=== PATIENT | male | born 1955 | race Caucasian/White ===

== ENCOUNTER 2017-04-28 17:51 | Outpatient (CLI) | payer OTHER ==
--- NOTE | 2017-04-29 16:43 | XRAY Report ---
EXAM: RIGHT TOE RADIOGRAPHY EXAM DATE: 04/28/2017 06:11 PM. CLINICAL HISTORY: Right toe pain. COMPARISON: None. TECHNIQUE: 3 views. FINDINGS: Bones: Normal. No fracture or bone lesion. Joints: Mild osteoarthritis present. No subluxations. Soft Tissues: Normal. No soft tissue swelling. IMPRESSION: Mild osteoarthritic changes without acute fracture. [facility] Referring Provider Line: [phone] SITE ID: [id number]
== END 2017-04-28 17:52 | disposition home or self-care (01) ==
LOC: DI 17:51
PROVIDERS: ATTEND Internal Medicine
DX: M19.071 Primary osteoarthritis, right ankle and foot (principal)
CPT/HCPCS: 73660

== ENCOUNTER 2019-11-04 10:11 | Emergency (ER) | payer OTHER ==
--- NOTE | 2019-11-04 10:49 | ED Physician Documentation ---
PD HPI LOWER EXT INJURY - Stated complaint Stated Complaint: L ANKLE INJ - Chief complaint Chief Complaint: Ext Problem - History obtained from History obtained from: Patient - History of Present Illness PD HPI LOW EXT INJURY LOCATION: Left, Ankle Type of injury: Twist (inversion of ankle with swelling and has had continued pain and difficulty walking. Using boot orthosis and crutches from prior injury.) Where injury occurred: Home Timing - onset: How many days ago (2) Timing - duration: Days (2) Worsened by: Moving, Palpating Associated symptoms: Weakness, Numbness Similar symptoms before: Has not had sx before Review of Systems Skin: denies: Abrasion (s), Laceration (s) Musculoskeletal: denies: Back pain Neurologic: denies: Focal weakness, Numbness PD PAST MEDICAL HISTORY - Past Medical History Cardiovascular: Hypertension Respiratory: None Endocrine/Autoimmune: None GI: GERD, Hepatitis : None HEENT: None Psych: None Musculoskeletal: None Derm: None - Past Surgical History Past Surgical History: Yes Ortho: Other - Present Medications Home Medications: Ambulatory Orders Medication Instructions Recorded Confirmed lisinopriL [Lisinopril] 15 mg PO QPM 09/06/15 09/07/15 - Allergies Allergies/Adverse Reactions: Allergies Allergy/AdvReac Type Severity Reaction Status Date / Time onion Allergy Unknown Verified 11/04/19 10:25 pepper (genus Capsicum) Allergy Unknown Verified 11/04/19 10:25 [pepper] - Social History Does the pt smoke?: No Smoking Status: Never smoker Does the pt drink ETOH?: No Does the pt have substance abuse?: No - Immunizations Immunizations are current?: Yes PD ED PE NORMAL - Vitals Vital signs reviewed: Yes - General General: Alert and oriented X 3, No acute distress, Well developed/nourished - Derm Derm: Normal color, Warm and dry - Extremities Extremities: Other (left ankle with moderate effusion and has some bruising purple color lateral lower foot. Achilles firm and intact. Medial and lateral ankle tender. No noted laxity with inversion/eversion stress testing but hurts at ATLF area. ) - Neuro Neuro: No motor deficit, No sensory deficit Results - Vitals Vitals: Vital Signs - 24 hr 11/04/19 11/04/19 10:22 11:13 Temperature 36.7 C 36.7 C Heart Rate 106 H 90 Respiratory 14 19 Rate Blood Pressure 140/88 H 128/79 O2 Saturation 97 97 Oxygen O2 Source Room air - Rads (name of study) left ankle Radiology: Prelim report reviewed (no acute fractures), See rad report PD MEDICAL DECISION MAKING - ED course Complexity details: reviewed results, considered differential (enough pain and swelling with some lateral bruising below ankle to suggest some torn ligam ents.), d/w patient Departure - Departure Disposition: 01 Home, Self Care Clinical Impression: Moderate ankle sprain Qualifiers: Encounter type: initial encounter Laterality: left Qualified Code(s): S93.402A - Sprain of unspecified ligament of left ankle, initial encounter Condition: Stable Record reviewed to determine appropriate education?: Yes Instructions: ED Sprain Ankle Follow-Up: Marium Martell PA [Primary Care Provider] - Dheeraj Reynolds MD [Provider Admit Priv/Credential] - Comments: Your x-ray is good without any fractures. Exam would be consistent with some partial tear of your ligaments however so I would continue the walking boot for likely 3 weeks to give time for healing. Initially use of the crutches as needed for comfort and progress weightbearing as tolerated. Elevate ice and rest the ankle often the next couple of days to reduce swelling. Tylenol or ibuprofen or Aleve if needed for pains. Recheck with your primary care or orthopedics if not improving well over the next week or 2 and back to fairly normal within 3 to 4 weeks. Discharge Date/Time: 11/04/19 11:18
--- NOTE | 2019-11-04 10:50 | XRAY Report ---
PROCEDURE: Ankle 3 View LT INDICATIONS: fall TECHNIQUE: 3 views of the ankle were acquired. COMPARISON: None FINDINGS: Bones: No acute fractures or dislocations. Remote appearing irregularity can be seen involving the d istal aspects of the distal medial malleolus and distal lateral malleolus, which may be related to re mote avulsion fractures. Ankle mortise is normally aligned. No suspicious bony lesions. The talar dome demonstrates an unremarkable appearance. Age-appropriate degenerative changes are seen. Soft tissues: Soft tissue swelling is seen, primarily laterally. IMPRESSION: No acute bony abnormality is seen by plain film. Soft tissue swelling is noted, primarily laterally. Please correlate with focal tenderness. If there is point tenderness (or other clinical concern for a fracture not seen on these plain films) then please consider a dedicated CT study or a short term fo llow up plain film series for further evaluation. Reviewed by: Diego Rebolledo MD on 11/04/2019 9:49 AM [facility] Approved by: Diego Rebolledo MD on 11/04/2019 9:49 AM [facility] Station ID: [id number]
[2019-11-04 11:13] VITALS: BP 128/79
== END 2019-11-04 11:18 | disposition home or self-care (01) ==
LOC: ED 10:11
DX: S93.402A Sprain of unspecified ligament of left ankle, initial encounter (principal); X50.1XXA Overexertion from prolonged static or awkward postures, initial encounter; Y93.89 Activity, other specified; Y92.008 Other place in unspecified non-institutional (private) residence as the place of occurrence of the external cause
CPT/HCPCS: 99282; 99283

== ENCOUNTER 2023-04-02 12:57 | Emergency (ER) | payer MEDICARE, OTHER ==
--- NOTE | 2023-04-02 13:32 | ED Physician Documentation ---
PD HPI ABD PAIN - Stated complaint Stated Complaint: ABD PX - Chief complaint Chief Complaint: Abd Pain - History obtained from History obtained from: Patient - Additional information Additional information: Patient is a 67-year-old male presenting for evaluation of epigastric and right upper quadrant pain that started abruptly 30 minutes ago. Patient reports associated nausea but no vomiting. He last had 2 sausage patties around 9:00 this morning. Earlier in the week he had a stomach flu that he describes as nausea, vomiting and diarrhea but his symptoms have stopped since Monday. No associated fevers. No chest pain or shortness of air. Has had a prior hernia surgery but otherwise no other abdominal surgeries. Denies dysuria or flank pain. Nothing makes his symptoms better or worse. Review of Systems Constitutional: denies: Fever Cardiac: denies: Chest pain / pressure Respiratory: denies: Dyspnea GI: reports: Abdominal Pain, Nausea. denies: Vomiting, Diarrhea : denies: Dysuria Musculoskeletal: denies: Back pain PD PAST MEDICAL HISTORY - Past Medical History Past Medical History: Yes Cardiovascular: Hypertension Respiratory: None Endocrine/Autoimmune: None GI: GERD, Hepatitis : None HEENT: None Psych: None Musculoskeletal: None Derm: None - Past Surgical History Past Surgical History: Yes Ortho: Other - Present Medications Home Medications: Ambulatory Orders Medication Instructions Recorded Confirmed lisinopriL [Lisinopril] 15 mg PO QPM 09/06/15 09/07/15 - Allergies Allergies/Adverse Reactions: Allergies Allergy/AdvReac Type Severity Reaction Status Date / Time onion Allergy Unknown Verified 04/02/23 13:25 pepper (genus Capsicum) Allergy Unknown Verified 04/02/23 13:25 [pepper] - Social History Does the pt smoke?: No Smoking Status: Never smoker Does the pt drink ETOH?: No Does the pt have substance abuse?: No - Immunizations Immunizations are current?: Yes PD ED PE NORMAL - General General: Alert and oriented X 3, No acute distress, Well developed/nourished - HEENT HEENT: Atraumatic, Moist mucous membranes, Pharynx benign - Neck Neck: Supple, no meningeal sign - Cardiac Cardiac: RRR, Strong equal pulses - Respiratory Respiratory: No respiratory distress, Clear bilaterally - Abdomen Abdomen: Normal bowel sounds, Soft, Non distended, Other (Epigastric and right upper quadrant tenderness to palpation, no rebound, no guarding, no palpable mass) - Derm Derm: Warm and dry - Neuro Neuro: Normal speech Results - Vitals Vitals: Vital Signs - 24 hr 04/02/23 04/02/23 04/02/23 13:05 13:07 15:10 Temperature 37 C Heart Rate 87 58 L Respiratory 18 16 8 L Rate Blood Pressure 108/79 116/89 H O2 Saturation 100 98 04/02/23 16:14 Temperature Heart Rate 54 L Respiratory 16 Rate Blood Pressure O2 Saturation 99 Oxygen O2 Source Room air - EKG (time done) 1346 EKG releavant findings:: EKG personally interpreted by author of this note. Relevant findings are: Rate 46, sinus bradycardia, no STEMI, QTc 400 - Labs Labs: Laboratory Tests 04/02/23 04/02/23 04/02/23 13:34 13:34 13:34 WBC 4.8 RBC 5.01 Hgb 15.5 Hct 45.8 MCV 91.4 MCH 30.9 MCHC 33.8 RDW 12.7 Plt Count 197 MPV 9.4 Neut # (Auto) Not Reportable Lymph # (Auto) Not Reportable Beadle # (Auto) Not Reportable Eos # (Auto) Not Reportable Baso # (Auto) Not Reportable Absolute Nucleated RBC Not Reportable Total Counted 100 Band Neuts % (Manual) 0 Reactive Lymphs % (Man) 7 Abnorm Lymph % (Manual) 0 Plasma Cell % (Manual) 1 Nucleated RBC % Not Reportable Neutrophils # (Manual) 3.3 Lymphocytes # (Manual) 1.1 L Monocytes # (Manual) 0.3 Eosinophils # (Manual) 0.0 Basophils # (Manual) 0.0 Differential Comment MANUAL DIFFERENTIAL Manual Slide Review Indicated WBC Morphology 1+ REACTIVE LYMPHS Platelet Estimate NORMAL (130-450,000) Platelet Morphology NORMAL APPEARANCE RBC Morph Micro Appear NORMAL APPEARANCE Sodium 140 Potassium 3.4 L Chloride 105 Carbon Dioxide 27 Anion Gap 8.0 BUN 18 Creatinine 1.0 Estimated GFR (MDRD) 75 L Glucose 142 H Calcium 9.3 Total Bilirubin 1.4 H AST 117 H ALT 117 H Alkaline Phosphatase 55 Troponin I High Sens 3.6 Total Protein 6.3 L Albumin 4.0 Globulin 2.3 Albumin/Globulin Ratio 1.7 Lipase 22 PD Medical Decision Making - ED course Complexity details: reviewed results, re-evaluated patient, d/w patient ED course: Patient is a 67-year-old male presenting for evaluation of epigastric and right upper quadrant pain starting just shortly prior to arrival. EKG reviewed and nonischemic. Labs including CBC, chemistry, troponin were obtained and reviewed. Mild elevation in AST and ALT at 117 with total bili of 1.4. Pain improved with IV fluids, Zofran, 1 dose of IV morphine and Dilaudid. Ultrasound of the right upper quadrant was ordered but was limited due to gas and tech was unable to visualize gallbladder. A CT scan was obtained which showed cholelithiasis But no signs of acute cholecystitis. On repeat abdominal exam patient has no tenderness. Discussed CT results and need for close follow-up with general surgery. I did express concerns that his AST and LFT are mildly elevated but his pain has improved here and we do not have MRCP available today. Patient is comfortable with plan for discharge with trial of low-fat diet but understand strict return precautions should the pain return and understands we may need to evaluate to see if he has a biliary obstruction. Departure - Departure Disposition: 01 Home, Self Care Clinical Impression: Cholelithiasis Condition: Stable Instructions: ED Diet Low Fat, ED Gallstone W Biliary Colic Follow-Up: [facility] [Provider Group] Comments: Your testing today shows that you have gallstones. At this time we do not see signs of a gallbladder infection requiring emergent removal of your gallbladder. However you do need close follow-up with general surgery to Discuss having your gallbladder removed. In the meanwhile it is very important to avoid certain foods which may trigger your gallbladder pain and I have included information regarding this in your paperwork. Your liver markers were slightly elevated. Sometimes this can happen if there is a stone in one of your ducts. As your pain is currently much better I do think it is reasonable to let you go home and see how you do. If your pain returns or you develop any new symptoms such as a fever then please return to the emergency department.I would recommend follow-up also with your primary care provider to ensure that your liver numbers improve. Forms: PCP List Discharge Date/Time: 04/02/23 16:16
[2023-04-02 13:42] LABS: BASOPHILS % (AUTO) 0.4 %; EOSINOPHILS % (AUTO) 2.1 %; HCT - HEMATOCRIT 45.8 % (42.0-52.0); HGB - HEMOGLOBIN 15.5 g/dL (14.0-18.0); LYMPHOCYTES % (AUTO) 26.4 %; MEAN CORPUSCULAR HEMOGLOBIN 30.9 pg (27.0-31.0); MEAN CORPUSCULAR HGB CONC 33.8 g/dL (32.0-36.0); MEAN CORPUSCULAR VOLUME 91.4 fL (80.0-94.0); MEAN PLATELET VOLUME 9.4 fL (7.4-11.4); MONOCYTES % (AUTO) 7.7 %; PLT - PLATELET COUNT 197 10^3/uL (130-450); RED BLOOD COUNT 5.01 10^6/uL (4.70-6.10); RED CELL DISTRIBUTION WIDTH 12.7 % (12.0-15.0); WHITE BLOOD COUNT 4.8 x10^3/uL (4.8-10.8)
[2023-04-02 13:43] LABS: SLIDE REVIEW? Indicated
[2023-04-02 13:44] LABS: ABNORMAL LYMPHS % (MANUAL) 0 %; BAND NEUTROPHILS % (MANUAL) 0 %
[2023-04-02] MEDS: SODIUM CHLORIDE 0.9% 1,000 ML IV STA (13:44)
[2023-04-02] MEDS: ONDANSETRON 4 MG/2 ML VIAL IVP STA (13:45)
--- NOTE | 2023-04-02 13:45 | XRAY Report ---
PROCEDURE: Chest 1V INDICATIONS: CP TECHNIQUE: One view of the chest was acquired. COMPARISON: None. FINDINGS: Surgical changes and devices: None. Lungs and pleura: No pleural effusions or pneumothorax. Lungs are clear. Mild right hemidiaphragm p atient Mediastinum: Mediastinal contours appear normal. Heart size is normal. Bones and chest wall: No suspicious bony lesions. Overlying soft tissues appear unremarkable. IMPRESSION: No acute cardiopulmonary process. Reviewed by: Guido Avilez MD on 04/02/2023 1:44 PM PST Approved by: Guido Avilez MD on 04/02/2023 1:44 PM PST Station ID: [id number]
[2023-04-02] MEDS: MORPHINE 2 MG/ML CARPUJECT IVP STA (13:46)
[2023-04-02 14:07] LABS: BASOPHILS % (MANUAL) 1 %; LYMPHOCYTES # (MANUAL) 1.1 10^3/uL (1.5-3.5); LYMPHOCYTES % (MANUAL) 16 %; MONOCYTES # (MANUAL) 0.3 10^3/uL (0.0-1.0); NEUTROPHILS # (MANUAL) 3.3 10^3/uL (1.5-6.6); PLASMA CELLS % (MANUAL) 1 %; REACTIVE LYMPHS % (MANUAL) 7 %
[2023-04-02 14:09] LABS: DIFFERENTIAL COMMENT MANUAL DIFFERENTIAL
[2023-04-02 14:10] LABS: PLATELET ESTIMATE, MANUAL NORMAL (130-450,000) (NORMAL); PLATELET MORPHOLOGY NORMAL APPEARANCE (NORMAL); RBC MORPHOLOGY (MULTIPLE) NORMAL APPEARANCE (NORMAL); WBC MORPHOLOGY (MULTIPLE) 1+ REACTIVE LYMPHS (NORMAL)
[2023-04-02 14:13] LABS: ALBUMIN/GLOBULIN RATIO 1.7 (1.0-2.2); BILIRUBIN,TOTAL 1.4 mg/dL (0.2-1.0); CALCIUM 9.3 mg/dL (8.5-10.3); POTASSIUM 3.4 mmol/L (3.5-4.5); TOTAL PROTEIN 6.3 g/dL (6.4-8.9)
[2023-04-02] MEDS: HYDROmorphone 1 MG/ML CARPUJECT IVP STA (14:25)
[2023-04-02] MEDS ORDERED: iohexoL-300 100 ML VIAL ONE (14:28)
[2023-04-02] MEDS: iohexoL-300 100 ML VIAL IVP ONE (15:08)
[2023-04-02 15:17] VITALS: BP 116/89
--- NOTE | 2023-04-02 15:19 | Ultrasound Report ---
PROCEDURE: Abdomen Limited INDICATIONS: RUQ pain TECHNIQUE: Real-time focused scanning was performed of the abdomen, with image documentation. COMPARISONS: None. FINDINGS: Liver: Liver is normal in size and mildly increased in echotexture. Gallbladder: Gallbladder is not definitively visualized. Biliary ducts: Intrahepatic bile ducts are non-dilated. Extrahepatic bile duct is not visualized. Pancreas: Obscured by overlying bowel gas. Right kidney: Normal in size and echotexture. Right kidney measures 11.3 cm long. No hydronephrosis or nephrolithiasis. No solid masses. No complex renal cystic lesions which require follow-up. Aorta: Visualized aorta is normal in caliber at less than 3 cm. IVC: Intrahepatic inferior vena cava is patent. Miscellaneous: No free abdominal fluid. IMPRESSION: Limited examination due to a large amount of. 1. Gallbladder is not definitively visualized, probably contracted. The patient was not NPO. 2. Mildly increased hepatic suggesting steatosis. 3. Pancreas and common bile duct are not visualized 4. Normal appearance of right kidney. Reviewed by: Guido Avilez MD on 04/02/2023 3:18 PM PST Approved by: Guido Avilez MD on 04/02/2023 3:18 PM PST Station ID: [id number]
--- NOTE | 2023-04-02 15:47 | CT Report ---
PROCEDURE: Abdomen/Pelvis W INDICATIONS: R sided abd pain CONTRAST: 100ml omni 300 TECHNIQUE: After the administration of intravenous contrast, a CT scan of the abdomen and pelvis was performed. Images were recorded and evaluated at appropriate window settings. Reformats: coronal and sagittal. F or radiation dose reduction, the following was used: automated exposure control, adjustment of mA and /or kV according to patient size. COMPARISON: CT abdomen and pelvis, 07/30/2012. FINDINGS: Image quality: Diagnostic. Lower chest: Basilar scars and atelectasis. Heart size is normal. Mild coronary calcification. Mild concentric thickening of the distal esophagus at the GE junction. Liver: No solid mass. Size. Mild hepatic steatosis with Gallbladder and biliary tree: There are multiple gallstones. No gallbladder wall thickening or perich olecystic fluid collection Spleen: No splenomegaly. Pancreas: No pancreatic ductal dilation. Adrenals: No adrenal nodule. Kidneys and ureters: No hydronephrosis. No renal cystic lesion which requires follow up. No solid mas s. Stomach, bowel and peritoneum: No bowel distension. No pathologic free fluid. Diverticulosis without acute diverticulitis. Normal appendix Lymph nodes: No central or retroperitoneal adenopathy. Vessels: No infrarenal aortic aneurysm. PELVIS Reproductive organs: Prostate is mildly enlarged. Bladder: No abnormal wall thickening, accounting for underdistention. Pelvic lymph nodes: No pelvic adenopathy by size criteria. Bones: No aggressive osseous abnormality. Moderate spondylitic changes in lumbar spine. Other: A fat-containing right inguinal hernia IMPRESSION: 1. Cholelithiasis. No CT findings to suggest acute cholecystitis. 2. Diverticulosis without diverticulitis. 3. Hepatic steatosis. Reviewed by: Guido Avilez MD on 04/02/2023 3:46 PM PST Approved by: Guido Avilez MD on 04/02/2023 3:46 PM PST Station ID: [id number]
[2023-04-02 16:20] VITALS: O2SAT 99
== END 2023-04-02 16:16 | disposition home or self-care (01) ==
LOC: ED 12:57
DX: K80.20 Calculus of gallbladder without cholecystitis without obstruction (principal); K76.0 Fatty (change of) liver, not elsewhere classified; I10 Essential (primary) hypertension
CPT/HCPCS: 36415; 71045; 74177; 76705; 80053; 83690; 84484; 85025; 93005; 96374; 96375; 99284; 99285; J1170; Q9967

== ENCOUNTER 2023-04-24 07:05 | Outpatient (CLI) | payer MEDICARE ==
[2023-04-24 15:32] LABS: ALBUMIN 4.3 g/dL (3.2-5.5); ALBUMIN/GLOBULIN RATIO 1.6 (1.0-2.2); BILIRUBIN,TOTAL 0.6 mg/dL (0.2-1.0); CALCIUM 9.7 mg/dL (8.5-10.3); POTASSIUM 4.5 mmol/L (3.5-4.5)
== END 2023-04-24 07:06 | disposition home or self-care (01) ==
LOC: LAB.S 07:05
PROVIDERS: ATTEND Surgery
DX: K81.1 Chronic cholecystitis (principal)
CPT/HCPCS: 36415; 80053